=== PATIENT | male | born 2005 | race Caucasian/White ===

== ENCOUNTER 2024-10-09 22:17 | Emergency (ER) | payer OTHER ==
[2024-10-09] MEDS: Doxycycline 100 MG in Sodium Chloride 0.9% 100 ML IV ONE (22:39)
[2024-10-09] MEDS: Doxycycline 100 MG Cap PO ONE (22:55)
== END 2024-10-09 23:05 | disposition home or self-care (01) ==
LOC: JP.ED 22:17
DX: S80.861A Insect bite (nonvenomous), right lower leg, initial encounter (principal); S80.862A Insect bite (nonvenomous), left lower leg, initial encounter; S40.862A Insect bite (nonvenomous) of left upper arm, initial encounter; S40.861A Insect bite (nonvenomous) of right upper arm, initial encounter; S20.369A Insect bite (nonvenomous) of unspecified front wall of thorax, initial encounter; W57.XXXA Bitten or stung by nonvenomous insect and other nonvenomous arthropods, initial encounter
CPT/HCPCS: 99283; A9270; 99282